=== PATIENT | female | born 1980 | race Caucasian/White ===

== ENCOUNTER 2019-07-09 08:19 | Emergency (ER) | payer SELFPAY ==
[~2019-07-09] VITALS: Ht 162.6 cm; Wt 72.6 kg
[2019-07-09 09:00] VITALS: BP 133/85
[2019-07-09] MEDS ORDERED: DICL50TA4 PO (09:19)
[2019-07-09] MEDS ORDERED: METH4TAB2 PO (09:19)
--- NOTE | 2019-07-09 09:20 | PHYS DOC ---
Past Medical History Past Medical History: Other Additional Past Medical Histor: crohn's Past Surgical History: No Surgical History Alcohol Use: None Drug Use: None Adult General Chief Complaint Chief Complaint: HAND PROBLEM HPI HPI Patient is a 39-year-old female who presents with complaint of right hand pain and numbness to her first through third digits has been going on for over a week now. Patient states that symptoms are progressively getting worse. She does do a lot of repetitive motion type movements with her hands at work. She rates pain as mild.[] Review of Systems Review of Systems Constitutional: Denies fever or chills [] Respiratory: Denies cough or shortness of breath [] Cardiovascular: No additional information not addressed in HPI [] Musculoskeletal: Positive right hand pain [] Integument: Denies rash or skin lesions [] Neurologic: Positive numbness tingling to palmar aspect of digits 1 through 3 of right hand[] Allergies Allergies Allergies Coded Allergies Type Severity Reaction Last Updated Verified No Known Drug Allergies 08/04/15 No Physical Exam Physical Exam Constitutional: Well developed, well nourished, no acute distress, non-toxic appearance. [] Cardiovascular:Heart rate regular rhythm, no murmur [] Lungs & Thorax: Bilateral breath sounds clear to auscultation [] Skin: Warm, dry, no erythema, no rash. [] Extremities: Examination of right hand demonstrates paresthesia to first through third digits of right hand. Positive Phalen and Tinel sign. [] EKG EKG [] Radiology/Procedures Radiology/Procedures [] Course & Med Decision Making Course & Med Decision Making Pertinent Labs and Imaging studies reviewed. (See chart for details) [] Dragon Disclaimer Dragon Disclaimer This electronic medical record was generated, in whole or in part, using a voice recognition dictation system. Departure Departure Impression: Primary Impression: Carpal tunnel syndrome Disposition: 01 HOME, SELF-CARE Condition: STABLE Referrals: NO PCP (PCP) Patient Instructions: Carpal Tunnel Syndrome Additional Instructions: Follow-up with your primary care provider in the next few days for further evaluation and management. Scripts Diclofenac Sodium (DICLOFENAC SODIUM) 50 Mg Tablet.dr 1 TAB PO BID PRN for PAIN, #20 TAB Prov: NAOMI DONOVAN Jr. DO 07/09/19 Methylprednisolone (MEDROL) 4 Mg Tab.ds.pk 1 PKG PO UD, #1 PKG Prov: NAOMI DONOVAN Jr. DO 07/09/19 Problem Qualifiers Primary Impression: Carpal tunnel syndrome Laterality: right Qualified Codes: G56.01 - Carpal tunnel syndrome, right upper limb NAOMI DONOVAN Jr. DO Jul 09, 2019 09:20
== END 2019-07-09 09:49 | disposition home or self-care (01) ==
LOC: ER 08:19
DX: G56.01 Carpal tunnel syndrome, right upper limb (principal); K50.90 Crohn's disease, unspecified, without complications
CPT/HCPCS: 29125; 99283